=== PATIENT | male | born 1980 | race African-American/Black ===

== ENCOUNTER 2022-05-06 20:34 | Inpatient (IN) | payer BC, SELFPAY ==
[~2022-05-06 20:34] MED LIST: Rocuronium Bromide 10 MG/ML (10ML VIAL) ONE
[2022-05-06 21:06] LABS: #Monocytes 0.6 10x3/uL (0.0-1.1); #Neutrophils 5.7 10x3/uL (1.5-8.4); %Basophils 0.3 % (0.0-2.0); %Eosinophils 0.3 % (0.0-6.0); %Lymphocytes 13.4 % (18.0-47.0); %Monocytes 8.3 % (0.0-10.0); %Neutrophils 77.3 % (40.0-75.0); Hemoglobin 13.9 g/dL (13.5-17.5); Mean Corpuscular HGB CONC 33.3 g/dL (32.0-36.0); Mean Corpuscular Hemoglobin 31.3 pg (27.0-33.0); Mean Corpuscular Volume 93.9 fl (81.2-95.1); Mean Platelet Volume 10.7 fl (7.4-10.4); Platelet Count 308 10x3/uL (150-450); RBC Distribution Width 13.4 % (11.5-14.5); Red Blood Cell (RBC) Count 4.44 10x6/uL (4.32-5.72); White Blood Cell (WBC) Count 7.4 10x3/uL (3.5-10.5)
[2022-05-06 21:17] LABS: Prothrombin Time 10.4 sec (9.5-12.1)
[2022-05-06 21:24] LABS: Lipase 24 U/L (8-78); Magnesium 2.3 mg/dL (1.6-2.6)
[2022-05-06 21:26] LABS: ALT (SGPT) 215 U/L (8-55); AST (SGOT) 418 U/L (5-34); Acetaminophen Less than 10.0 mcg/mL (10.0-30.0); Albumin 4.4 g/dL (3.5-5.0); Alcohol Less than 10 mg/dL (Less than 10); Alkaline Phosphatase 136 U/L (40-110); Anion Gap 22 mmol/L (10-20); BUN (Urea Nitrogen) 25 mg/dL (8.9-20.6); Bilirubin, Total 0.2 mg/dL (0.2-1.2); Calc. Creatinine Clearance 0 mL/min (70-130); Calcium 10.2 mg/dL (7.8-10.44); Carbon Dioxide 18 mmol/L (22-29); Chloride 108 mmol/L (98-107); Estimated GFR 56; Globulin 3.7 g/dL (2.4-3.5); Glucose 129 mg/dL (70-105); Protein, Total 8.1 g/dL (6.0-8.3); Salicylate Less than 8.0 mg/dL (15.0-30.0); Sodium 143 mmol/L (136-145)
[2022-05-06 21:28] LABS: Bilirubin Neg (Negative); Blood, Urine 50 (Negative); Clarity Clear (Clear); Glucose, Urine (Dipstick) Normal (Negative); Ketone, Urine 5 mg/dL (Negative); Leukocyte 25 (Negative); Nitrite Negative (Negative); Protein, Urine (Dipstick) 30 mg/dl (Neg-Trace); Specific Gravity, Urine 1.025 (1.005-1.030)
[2022-05-06] MEDS ORDERED: Cefepime 2 GM VIAL ONE (21:28)
[2022-05-06] MEDS ORDERED: Vancomycin 1 GM VIAL ONE ×3 (21:28→23:58)
[2022-05-06 21:34] LABS: Amphetamine Not Detected (NotDetected); Barbiturates Screen Not Detected (NotDetected); Benzodiazepine Screen Not Detected (NotDetected); Cocaine Metabolite Screen Not Detected (NotDetected); Methadone Not Detected (NotDetected); Methamphetamine Not Detected (NotDetected); Opiate Screen Not Detected (NotDetected); Oxycodone Screen Not Detected (NotDetected); Phencyclidine (PCP) Detected (NotDetected); THC/Cannabinoid Screen Not Detected (NotDetected); Tricyclic Screen Not Detected (NotDetected)
[2022-05-06] MEDS ORDERED: Midazolam HCl 2 mg/2 ml Vial ONE ×2 (21:40→22:47)
[2022-05-06] MEDS ORDERED: Propofol 1,000 MG/100 ML VIAL IV ONE (21:42)
[2022-05-06 21:46] LABS: SARS-CoV-2 NAA Rapid Test Not Detected (NotDetected)
[2022-05-06 21:50] LABS: WBC/HPF 0-3 HPF (0-3)
[2022-05-06 21:51] LABS: Actual Bicarbonate (HCO3a) 23.9 mEq/L (22-28); Base Excess (BEa) -4.9 mEq/L (-2.0 to +3.0); CO2 Tension 61.2 mmHg (35.0-45.0); Calcium, Ionized (arterial) 1.21 mmol/L (1.12-1.30); Carboxyhemoglobin (COHb) 1.4 gm% (0.0-3.0); Critical Notified By: CP.PH; Hemoglobin (Hb) 13.6 g/dL (14.0-18.0); O2 Tension (PaO2), arterial 79.2 mmHg (80.0-100.0); Potassium - ABG Lab 4.7 mmol/L (3.70-5.30); Puncture Site RRA; RapidComm Collect By CP.PH; pH, Arterial 7.21 (7.35-7.45)
[2022-05-06 21:51] LABS: Bacteria/HPF None Seen HPF (None Seen); Renal Epithelial 0-3 HPF (None Seen)
[2022-05-06 22:22] LABS: CK (CPK) 22756 U/L (30-200)
[2022-05-06] MEDS ORDERED: NOREPINEPHRINE 8 MG/250 ML-D5W 250 ML ONE (23:13)
[2022-05-06 23:41] LABS: Lactic Acid 1.7 mmol/L (0.5-2.2)
[2022-05-07] MEDS ORDERED: Propofol BOLUS 1,000 MG/100 ML VIAL IV PRN (02:00)
[2022-05-07] MEDS ORDERED: Fentanyl BOLUS 250 ML IVPB PRN (02:00)
[2022-05-07] MEDS ORDERED: DISCONTINUE PREVIOUS NARCOTIC PAIN MEDICATIONS AND BENZODIAZEPINES FS SCH (02:00)
[2022-05-07] MEDS ORDERED: Lorazepam 2 MG/ML VIAL SLOW IVP PRN (02:00)
[2022-05-07] MEDS ORDERED: Morphine 2 MG/ML VIAL SLOW IVP PRN (02:00)
[2022-05-07] MEDS: Propofol 1,000 MG/100 ML VIAL IV PRN ×5 (02:18→20:15)
[2022-05-07] MEDS: Lactated Ringer's 1,000 ML IV SCH ×5 (02:28→16:51)
[2022-05-07 03:49] LABS: #Monocytes 0.8 10x3/uL (0.0-1.1); %Basophils 0.2 % (0.0-2.0); %Eosinophils 0.1 % (0.0-6.0); %Lymphocytes 14.5 % (18.0-47.0); %Monocytes 8.7 % (0.0-10.0); %Neutrophils 76.3 % (40.0-75.0); Hemoglobin 11.2 g/dL (13.5-17.5); Mean Corpuscular HGB CONC 33.2 g/dL (32.0-36.0); Mean Corpuscular Hemoglobin 30.9 pg (27.0-33.0); Mean Corpuscular Volume 93.1 fl (81.2-95.1); Mean Platelet Volume 10.5 fl (7.4-10.4); Platelet Count 240 10x3/uL (150-450); RBC Distribution Width 13.5 % (11.5-14.5); Red Blood Cell (RBC) Count 3.62 10x6/uL (4.32-5.72); White Blood Cell (WBC) Count 9.1 10x3/uL (3.5-10.5)
[2022-05-07 04:17] LABS: Anion Gap 10 mmol/L (10-20); BUN (Urea Nitrogen) 22 mg/dL (8.9-20.6); Calc. Creatinine Clearance 108 mL/min (70-130); Calcium 8.3 mg/dL (7.8-10.44); Carbon Dioxide 22 mmol/L (22-29); Chloride 112 mmol/L (98-107); Estimated GFR 73; Glucose 114 mg/dL (70-105); Magnesium 2.3 mg/dL (1.6-2.6); Potassium 3.9 mmol/L (3.5-5.1); Sodium 140 mmol/L (136-145)
[2022-05-07 04:40] LABS: CK (CPK) 17214 U/L (30-200)
[2022-05-07] MEDS: Cefepime 2 GM in Sodium Chloride 0.9% 100 ML IVPB SCH ×3 (06:15→23:56)
[2022-05-07] MEDS: FENTANYL 2,000MCG/100-0.9%NACL 100 ML IVPB SCH ×2 (06:34→18:21)
[2022-05-07 07:02] LABS: Actual Bicarbonate (HCO3a) 22.9 mEq/L (22-28); Base Excess (BEa) -0.1 mEq/L (-2.0 to +3.0); CO2 Tension 31.8 mmHg (35.0-45.0); Calcium, Ionized (arterial) 1.14 mmol/L (1.12-1.30); Carboxyhemoglobin (COHb) 0.6 gm% (0.0-3.0); Hemoglobin (Hb) 11.3 g/dL (14.0-18.0); O2 Tension (PaO2), arterial 86.3 mmHg (80.0-100.0); Potassium - ABG Lab 3.4 mmol/L (3.70-5.30); Puncture Site RRA; pH, Arterial 7.48 (7.35-7.45)
[2022-05-07] MEDS: Pantoprazole 40 MG VIAL IVP SCH (08:18)
[2022-05-07] MEDS ORDERED: FLU VACC QS2022-23(6MOS UP)/PF 60 MCG/0.5 ML SYRINGE IM ONE (09:00)
[2022-05-07] MEDS ORDERED: Vancomycin 1.5 GRAM/300 ML BAG 1.5 GM in Premix Bag 1 BAG IVPB SCH (12:00)
[2022-05-07] MEDS ORDERED: VANCOMYCIN 2 GRAM/400 ML BAG IVPB SCH (12:00)
[2022-05-07] MEDS: Sodium Chloride 0.45% 1,000 ML IV SCH (16:51)
[2022-05-08] MEDS: Vancomycin 1.5 GRAM/300 ML BAG 1.5 GM in Premix Bag 1 BAG IVPB SCH ×2 (00:54→13:38)
[2022-05-08] MEDS: Propofol 1,000 MG/100 ML VIAL IV PRN ×3 (00:59→07:56)
[2022-05-08 04:01] LABS: #Monocytes 0.6 10x3/uL (0.0-1.1); #Neutrophils 4.6 10x3/uL (1.5-8.4); %Eosinophils 0.5 % (0.0-6.0); %Lymphocytes 11.7 % (18.0-47.0); %Neutrophils 77.5 % (40.0-75.0); Mean Corpuscular HGB CONC 33.1 g/dL (32.0-36.0); Mean Corpuscular Hemoglobin 31.3 pg (27.0-33.0); Mean Corpuscular Volume 94.6 fl (81.2-95.1); Mean Platelet Volume 10.8 fl (7.4-10.4); Platelet Count 208 10x3/uL (150-450); RBC Distribution Width 14.3 % (11.5-14.5); Red Blood Cell (RBC) Count 3.51 10x6/uL (4.32-5.72)
[2022-05-08 04:12] LABS: ALT (SGPT) 135 U/L (8-55); AST (SGOT) 184 U/L (5-34); Albumin 3.1 g/dL (3.5-5.0); Alkaline Phosphatase 124 U/L (40-110); Anion Gap 14 mmol/L (10-20); BUN (Urea Nitrogen) 19 mg/dL (8.9-20.6); Bilirubin, Total 0.4 mg/dL (0.2-1.2); Calc. Creatinine Clearance 106 mL/min (70-130); Calcium 8.4 mg/dL (7.8-10.44); Carbon Dioxide 22 mmol/L (22-29); Chloride 111 mmol/L (98-107); Estimated GFR 71; Globulin 2.9 g/dL (2.4-3.5); Glucose 77 mg/dL (70-105); Potassium 4.5 mmol/L (3.5-5.1); Sodium 142 mmol/L (136-145)
[2022-05-08 04:30] LABS: CK (CPK) 10171 U/L (30-200)
[2022-05-08] MEDS: Sodium Chloride 0.45% 1,000 ML IV SCH ×2 (06:10→18:07)
[2022-05-08] MEDS: Cefepime 2 GM in Sodium Chloride 0.9% 100 ML IVPB SCH ×2 (07:54→17:11)
[2022-05-08] MEDS: Pantoprazole 40 MG VIAL IVP SCH (07:56)
[2022-05-08] MEDS ORDERED: Dexmedetomidine In 0.9 % NaCl 100 ML ONE (08:33)
[2022-05-08] MEDS ORDERED: Dexmedetomidine In 0.9 % NaCl 400 MCG in Premix Bag 1 BAG IVPB SCH (08:45)
[2022-05-08 11:54] LABS: Vancomycin, Trough 11.8 ug/mL
[2022-05-08] MEDS ORDERED: Acetaminophen 325 MG TAB PO SCH (22:45)
[2022-05-09] MEDS: Cefepime 2 GM in Sodium Chloride 0.9% 100 ML IVPB SCH ×2 (01:17→07:36)
[2022-05-09] MEDS: Vancomycin 1.5 GRAM/300 ML BAG 1.5 GM in Premix Bag 1 BAG IVPB SCH (01:34)
[2022-05-09 03:51] LABS: #Eosinphils 0.1 10x3/uL (0.0-0.5); #Monocytes 0.6 10x3/uL (0.0-1.1); #Neutrophils 4.3 10x3/uL (1.5-8.4); %Basophils 0.3 % (0.0-2.0); %Eosinophils 1.4 % (0.0-6.0); %Lymphocytes 14.8 % (18.0-47.0); %Monocytes 10.6 % (0.0-10.0); %Neutrophils 72.6 % (40.0-75.0); Hemoglobin 11.6 g/dL (13.5-17.5); Mean Corpuscular HGB CONC 34.5 g/dL (32.0-36.0); Mean Corpuscular Hemoglobin 31.6 pg (27.0-33.0); Mean Corpuscular Volume 91.6 fl (81.2-95.1); Mean Platelet Volume 10.3 fl (7.4-10.4); Platelet Count 214 10x3/uL (150-450); RBC Distribution Width 12.9 % (11.5-14.5); Red Blood Cell (RBC) Count 3.67 10x6/uL (4.32-5.72); White Blood Cell (WBC) Count 5.9 10x3/uL (3.5-10.5)
[2022-05-09 04:03] LABS: ALT (SGPT) 145 U/L (8-55); AST (SGOT) 221 U/L (5-34); Alkaline Phosphatase 145 U/L (40-110); Anion Gap 12 mmol/L (10-20); BUN (Urea Nitrogen) 13 mg/dL (8.9-20.6); Bilirubin, Total 0.5 mg/dL (0.2-1.2); Calc. Creatinine Clearance 136 mL/min (70-130); Calcium 8.5 mg/dL (7.8-10.44); Carbon Dioxide 25 mmol/L (22-29); Chloride 108 mmol/L (98-107); Estimated GFR 96; Globulin 3.1 g/dL (2.4-3.5); Glucose 104 mg/dL (70-105); Potassium 3.9 mmol/L (3.5-5.1); Protein, Total 6.1 g/dL (6.0-8.3); Sodium 141 mmol/L (136-145)
[2022-05-09 04:27] LABS: CK (CPK) 9999 U/L (30-200)
[2022-05-09 05:33] VITALS: BP 133/73; TEMP 99.1
[2022-05-09] MEDS: Sodium Chloride 0.45% 1,000 ML IV SCH (07:36)
[2022-05-09] MEDS: Pantoprazole 40 MG VIAL IVP SCH (07:36)
[2022-05-09 18:01] LABS: HIV (1/2) Antibody/Antigen Non-Reactive (NonReactive); HIV 1/2 INDEX 0.09 S/CO (<1.00)
[2022-05-09] MEDS: Lactated Ringer's 1,000 ML IV SCH (21:02)
[2022-05-09 23:02] LABS: Hep C IgG Ab Non-Reactive (NonReactive)
[2022-05-10 04:15] LABS: #Eosinphils 0.1 10x3/uL (0.0-0.5); #Monocytes 0.5 10x3/uL (0.0-1.1); %Basophils 0.5 % (0.0-2.0); %Eosinophils 1.6 % (0.0-6.0); %Lymphocytes 18.6 % (18.0-47.0); %Neutrophils 66.8 % (40.0-75.0); Hemoglobin 12.1 g/dL (13.5-17.5); Mean Corpuscular HGB CONC 35.3 g/dL (32.0-36.0); Mean Corpuscular Hemoglobin 31.5 pg (27.0-33.0); Mean Corpuscular Volume 89.3 fl (81.2-95.1); Mean Platelet Volume 10.5 fl (7.4-10.4); Platelet Count 219 10x3/uL (150-450); RBC Distribution Width 12.4 % (11.5-14.5); Red Blood Cell (RBC) Count 3.84 10x6/uL (4.32-5.72); White Blood Cell (WBC) Count 4.4 10x3/uL (3.5-10.5)
[2022-05-10 06:17] VITALS: BMI 33.9
[2022-05-10 07:49] LABS: ALT (SGPT) 142 U/L (8-55); AST (SGOT) 177 U/L (5-34); Albumin 3.1 g/dL (3.5-5.0); Alkaline Phosphatase 148 U/L (40-110); Anion Gap 13 mmol/L (10-20); BUN (Urea Nitrogen) 11 mg/dL (8.9-20.6); Bilirubin, Total 0.4 mg/dL (0.2-1.2); Calc. Creatinine Clearance 154 mL/min (70-130); Calcium 8.9 mg/dL (7.8-10.44); Carbon Dioxide 26 mmol/L (22-29); Chloride 106 mmol/L (98-107); Estimated GFR 102; Globulin 3.2 g/dL (2.4-3.5); Glucose 98 mg/dL (70-105); Potassium 3.6 mmol/L (3.5-5.1); Protein, Total 6.3 g/dL (6.0-8.3); Sodium 141 mmol/L (136-145)
[2022-05-10] MEDS: Lactated Ringer's 1,000 ML IV SCH (08:26)
[2022-05-11 07:38] LABS: Hep B Surface AG-Rflx Sendout Negative (Negative); Hepatitis B Core Total Negative (Negative); Hepatitis B Surface AB-Sendout Non Reactive (.)
== END 2022-05-10 10:15 | disposition home or self-care (01) | DRG 917 ==
LOC: CSHERS 20:34 → CSHIMCU 22:32 → UNDOADMIN 22:32 → CSHIMCU 05-07 01:45
PROVIDERS: ADMIT Family Medicine; ATTEND Family Medicine
PROC: 02HV33Z Insertion of Infusion Device into Superior Vena Cava, Percutaneous Approach (ICD-10-PCS; principal; 2022-05-07)
PROC: B548ZZA Ultrasonography of Superior Vena Cava, Guidance (ICD-10-PCS; 2022-05-07)
PROC: 3E043XZ Introduction of Vasopressor into Central Vein, Percutaneous Approach (ICD-10-PCS; 2022-05-07)
PROC: 0BH17EZ Insertion of Endotracheal Airway into Trachea, Via Natural or Artificial Opening (ICD-10-PCS; 2022-05-07)
PROC: 5A1945Z Respiratory Ventilation, 24-96 Consecutive Hours (ICD-10-PCS; 2022-05-07)
DX: T59 Toxic effect of other gases, fumes and vapors (principal); G92.8 Other toxic encephalopathy; J96.01 Acute respiratory failure with hypoxia; K72.00 Acute and subacute hepatic failure without coma; M62.82 Rhabdomyolysis; N17.9 Acute kidney failure, unspecified; E87.20 Acidosis, unspecified; Z20.822 Contact with and (suspected) exposure to COVID-19; I95.2 Hypotension due to drugs; I10 Essential (primary) hypertension; Z79.899 Other long term (current) drug therapy; Z82.49 Family history of ischemic heart disease and other diseases of the circulatory system; Z78.1 Physical restraint status
CPT/HCPCS: 36415; 36600; 70450; 71045; 80048; 80053; 80202; 80306; 80307; 81003; 81015; 82550; 82805; 83605; 83690; 83735; 83880; 84484; 85025; 85610; 85730; 86704; 86706; 86803; 87040; 87070; 87086; 87205; 87340; 87389; 93005; 93010; 94002; 94003; 94760; C9113; J0692; J1650; J2250; J2704; J3370; J3490; J7120